=== PATIENT | female | born 1995 | race Caucasian/White ===

== ENCOUNTER → 2022-06-09 | Outpatient (CLI) | payer OTHER, SELFPAY ==
[2022-06-09 12:04] LABS: hCG Titer Quant., Serum 128 mIU/mL (1-3)
== END | disposition home or self-care (01) ==
LOC: PAVLAB 11:16
PROVIDERS: Referring Provider Obstetrics & Gynecology; Visit Provider Obstetrics & Gynecology
DX: N91.2 Amenorrhea, unspecified (principal)
CPT/HCPCS: 36415; 84702

== ENCOUNTER → 2022-06-11 | Outpatient (CLI) | payer OTHER, SELFPAY ==
[2022-06-11 13:31] LABS: hCG Titer Quant., Serum 269 mIU/mL (1-3)
== END | disposition home or self-care (01) ==
LOC: LAB 12:06
PROVIDERS: Referring Provider Obstetrics & Gynecology; Visit Provider Obstetrics & Gynecology
DX: N91.2 Amenorrhea, unspecified (principal)
CPT/HCPCS: 36415; 84702

== ENCOUNTER → 2022-06-19 | Outpatient (CLI) | payer OTHER, SELFPAY ==
[2022-06-19 08:39] LABS: hCG Titer Quant., Serum 2798 mIU/mL (1-3)
== END | disposition home or self-care (01) ==
LOC: LAB 07:09
PROVIDERS: Visit Provider Obstetrics & Gynecology
DX: O09.299 Supervision of pregnancy with other poor reproductive or obstetric history, unspecified trimester (principal); E72.12 Methylenetetrahydrofolate reductase deficiency; O99.280 Endocrine, nutritional and metabolic diseases complicating pregnancy, unspecified trimester; Z3A.00 Weeks of gestation of pregnancy not specified
CPT/HCPCS: 36415; 84702

== ENCOUNTER → 2022-06-21 | Outpatient (CLI) | payer OTHER, SELFPAY ==
[2022-06-21 19:09] LABS: hCG Titer Quant., Serum 4572 mIU/mL (1-3)
== END | disposition home or self-care (01) ==
LOC: LAB 17:09
PROVIDERS: Referring Provider Obstetrics & Gynecology; Visit Provider Obstetrics & Gynecology
DX: O09.299 Supervision of pregnancy with other poor reproductive or obstetric history, unspecified trimester (principal)
CPT/HCPCS: 36415; 84702

== ENCOUNTER → 2022-06-23 | Outpatient (CLI) | payer OTHER, SELFPAY ==
[2022-06-23 17:29] LABS: Hemoglobin 13.9 g/dL (12.0-15.0); Mean Corp Hgb Conc 34.8 g/dL (32-36); Mean Corpuscular Hgb 30.4 pg (27.0-32.0); Mean Corpuscular Volume 87.5 fL (81-99); Mean Platelet Vol. 9.6 fl (6.2-12.0); Platelet Count 300 K/mm3 (150-450); RBC Distribution Width CV 12.8 % (11.6-14.6); RBC Distribution Width SD 40.9 fl (35.1-43.9); Red Blood Count 4.57 M/mm3 (4.2-5.4)
[2022-06-23 18:40] LABS: hCG Titer Quant., Serum 2685 mIU/mL (1-3)
== END | disposition home or self-care (01) ==
LOC: LAB 17:13
PROVIDERS: Referring Provider Obstetrics & Gynecology; Visit Provider Obstetrics & Gynecology
DX: O20.0 Threatened abortion (principal); O26.859 Spotting complicating pregnancy, unspecified trimester; Z3A.00 Weeks of gestation of pregnancy not specified
CPT/HCPCS: 36415; 84702; 85027; 86850; 86900; 86901

== ENCOUNTER → 2022-06-28 | Outpatient (CLI) | payer OTHER, SELFPAY ==
[2022-06-28 14:23] LABS: Absolute Lymphocyte Count 2.95 X10^3/uL (0.83-4.51); Absolute Neutrophil Count 6.5 X10^3/uL (2.0-7.7); Basophil# 0.07 X10^3/uL; Basophil% 0.7 % (0-1); Eosinophil# 0.15 X10^3/uL; Eosinophils% 1.5 % (0-5); Hematocrit 41.3 % (37-47); Hemoglobin 14.5 g/dL (12.0-15.0); Lymphocyte # 2.95 X10^3/ul (0.83-4.51); Lymphocyte % 28.8 % (19-41); Mean Corp Hgb Conc 35.1 g/dL (32-36); Mean Corpuscular Volume 88.4 fL (81-99); Mean Platelet Vol. 9.2 fl (6.2-12.0); Monocyte# 0.57 X10^3/uL; Monocyte% 5.6 % (0-10); NRBC Flagged by Analyzer 0 % (0-5); Neutrophil # 6.47 X10^3/uL (2.7-7.7); Neutrophil % 63.1 % (47-70); Platelet Count 276 K/mm3 (150-450); RBC Distribution Width CV 12.8 % (11.6-14.6); RBC Distribution Width SD 41.6 fl (35.1-43.9); Red Blood Count 4.67 M/mm3 (4.2-5.4); White Blood Count 10.2 K/mm3 (4.4-11.0)
[2022-06-28 14:42] LABS: hCG Titer Quant., Serum 274 mIU/mL (1-3)
== END | disposition home or self-care (01) ==
LOC: PAVLAB 14:09
PROVIDERS: Obstetrics & Gynecology; Visit Provider Obstetrics & Gynecology
DX: O03.9 Complete or unspecified spontaneous abortion without complication (principal)
CPT/HCPCS: 36415; 84702; 85025; 86850; 86900; 86901

== ENCOUNTER → 2022-07-05 | Outpatient (CLI) | payer OTHER, SELFPAY ==
[2022-07-05 10:19] LABS: Hemoglobin A1c 5.2 % (3.8-5.6)
[2022-07-05 10:47] LABS: hCG Titer Quant., Serum 29 mIU/mL (1-3)
[2022-07-05 10:52] LABS: T4 Free Direct 0.94 ng/dL (0.76-1.46)
[2022-07-06 17:02] LABS: Thyroid Peroxidase AB 8 IU/mL (0-34)
== END | disposition home or self-care (01) ==
LOC: PAVLAB 09:34
PROVIDERS: Visit Provider Obstetrics & Gynecology
DX: N96 Recurrent pregnancy loss (principal)
CPT/HCPCS: 36415; 83036; 84439; 84443; 84702; 86376

== ENCOUNTER → 2023-04-19 | Outpatient (CLI) | payer OTHER, SELFPAY ==
[2023-04-21 05:07] LABS: Anti-Cardiolipin Ab, IgA, Qn < 9 APL U/mL (0-11); Anti-Cardiolipin Ab, IgG, Qn < 9 GPL U/mL (0-14); Anti-Cardiolipin Ab, IgM, Qn < 9 MPL U/mL (0-12); Beta-2-Glycoprotein I IgA <9 (0-25); Beta-2-Glycoprotein I IgG <9 (0-20); Beta-2-Glycoprotein I IgM <9 (0-32); Dilute Prothrombin Time (dPT) 44.8 sec (0.0-47.6); Dilute Russell Viper Venom 45.3 sec (0.0-47.0); Interpretation Comment: (.); PTT-LA 42.6 sec (0.0-43.5); Thrombin Time 16.6 sec (0.0-23.0); dPT Confirm Ratio 1.09 Ratio (0.00-1.34)
== END | disposition home or self-care (01) ==
PROVIDERS: Referring Provider Obstetrics & Gynecology; Visit Provider Obstetrics & Gynecology
DX: N96 Recurrent pregnancy loss (principal)
CPT/HCPCS: 36415; 86146; 86147